=== PATIENT | female | born 1935 | race African-American/Black ===

== ENCOUNTER 2016-11-01 23:04 | Inpatient (IN) | payer OTHER ==
--- NOTE | ~2016-11-01 | US77 ---
[facility] A Service of [facility] & [facility] RADIOLOGY TEXT RESULTS PATIENT: CASH AVINA LOCATION: [facility] 577-01 : 36 UNIT #: [id number] AGE: [address]: Марина Lester MD SEX: F ORDER DR: [id number] [facility] [address] [place], [place] [address] [id number] MR#: [id number] Acc #: [id number] NAME: CASH AVINA : 1935 SEX: F STUDY DATE/TIME: 11/02/2016 13:53 UNIT: [facility] ROOM: [facility] STUDY DESCRIPTION: US Kidney Bilateral Complete Attending Physician: Марина Lester M.D. Ordering Physician: Edel Whitmore M.D. Primary Care Physician: Er Doctor [facility] MEDICAL IMAGING REPORT This report is preliminary unless electronic signature is present EXAM Bilateral renal sonogram HISTORY Acute renal failure, creatinine 3.0, BUN 34 FINDINGS Real-time examination demonstrates increased echogenicity of both kidneys suggesting underlying medical renal disease. Cortical thickness appears normal. No hydronephrosis. No mass lesions identified. The right kidney measures 12.4 cm in length. Left kidney 11.5 cm in length. Bladder unremarkable. Incidentally noted is a 1 cm liver cyst. IMPRESSION Bilaterally echogenic kidneys may reflect underlying medical renal disease. No hydronephrosis or mass lesion identified. Dictated by... Nina Yu M.D. THIS IS AN ELECTRONICALLY VERIFIED REPORT Nina Yu M.D. at 11/03/2016 9:37 AM Lauren TD: 11/02/2016 20:43 JOB #: [id number] MEDICAL IMAGING REPORT Page 1 of 1 COPY
--- NOTE | ~2016-11-01 | HP ---
Unit #: [id number] #: [id number] Patient: CASH AVINA [id number] [address] [place], [place] [address] [id number] I MR#: [id number] NAME: CASH AVINA ROOM: 577 Age: 81 Sex: F Admission Date: 11/01/2016 : 1935 Attending Physician: Марина Lester M.D. HISTORY AND PHYSICAL CHIEF COMPLAINT Low blood sugar. HISTORY OF PRESENT ILLNESS This patient basically is an 81-year-old female with past medical history of stroke, hypertension, hypothyroidism, diabetes mellitus and left eye blindness, no surgical history. Presents with a complaint of low blood sugar, feeling weak. Was found to have elevated creatinine. I am seeing the patient at the bedside. Denies any headache, blurry vision, chest pain. PAST MEDICAL HISTORY As described above. SOCIAL HISTORY Nonsmoker. No alcohol or drug abuse. FAMILY HISTORY None, as per record. MEDICATIONS As per MAR. Has been reviewed. ALLERGIES Have been reviewed. PHYSICAL EXAMINATION VITAL SIGNS: Temperature is 98, pulse 70, respirations 12, blood pressure 130/70. NEUROLOGIC: Awake, alert and oriented. No neuro deficits. HEENT: PERRLA. EOMI. NECK: Supple. No JVD. CHEST: Bilateral air entry. Bilaterally mild rhonchi. GI: Nontender. Soft. Bowel sounds are positive. EXTREMITIES: Positive edema. SKIN: No rash or ulcers. LYMPHATIC: No adenopathy. DIAGNOSTIC STUDIES Labs and imaging have been reviewed. ASSESSMENT 1. Acute renal failure. 2. Diabetes mellitus. Unit #: [id number] #: [id number] Patient: CASH AVINA 3. Hypertension. 4. Morbid obesity. 5. Questionable UTI. PLAN Continue the patient on IV antibiotics, bronchodilator. GI and DVT prophylaxis. Hold Hydrochlorothiazide. Monitor blood sugar. Consult nephrology. The patient will be closely monitored. Please see orders for detailed plan. Dictated by Gustaov Joel/geraldine TD: 11/02/2016 12:45 JOB #: [id number] HISTORY AND PHYSICAL Page 1 of 1 X Марина Lester MD X HISTORY AND PHYSICAL
--- NOTE | ~2016-11-01 | DS ---
Unit #: [id number] #: [id number] Patient: CASH AVINA [id number] [address] [address] [id number] I MR#: [id number] NAME: CASH AVINA ROOM: 57 Age: 81 Sex: F Admission Date: 11/01/2016 : 1935 Discharge Date: Attending Physician: Марина Lester M.D. Primary Care Physician: [facility] DISCHARGE SUMMARY DISCHARGE DIAGNOSES 1. Acute kidney injury. 2. Urinary tract infection, status post treatment. 3. Hypertension. 4. Diabetes mellitus. CHIEF COMPLAINT/HISTORY OF PRESENT ILLNESS The patient presented with a complaint of renal insufficiency and was admitted. Patient is pretty adamant to go home and she does not want to stay. Her creatinine is 3.3. PHYSICAL EXAMINATION VITAL SIGNS: Temperature 98, pulse 87, respirations 12, blood pressure 130/70. NEUROLOGIC: Awake, alert, oriented. No neuro deficit. HEENT: PERRLA plus 1. NECK: Supple. No JVD. CHEST: Bilateral air entry. Bilateral mild rhonchi. GASTROINTESTINAL: Nontender, soft. Bowel sounds positive. EXTREMITIES: No edema. SKIN: No rashes. No ulcers. LYMPHATIC: No lymphadenopathy. DISCHARGE MEDICATIONS As per med reconciliation. Please see orders for detailed plan. FOLLOWUP Patient will follow with nephrology. Follow with primary care physician. Dictated by... Gustavo Joel/joey TD: 11/03/2016 15:26 JOB #: [id number] Unit #: [id number] #: [id number] Patient: CASH AVINA DISCHARGE SUMMARY Page 1 of 1 X Марина Lester MD X DISCHARGE SUMMARY
--- NOTE | ~2016-11-01 | CO ---
Unit #: [id number] #: [id number] Patient: CASH GONZALEZ [id number] [address] [address] [id number] I MR#: [id number] NAME: CASH GONZALEZ ROOM: 577 Age: 81 Sex: F Admission Date: 11/01/2016 : 1935 Attending Physician: Марина Lester M.D. Consultation Date: 11/02/2016 CONSULTATION REPORT REASON FOR CONSULTATION Renal insufficiency. Thank you very much for asking us to see this patient in consultation. HISTORY OF PRESENT ILLNESS Ms. Cash Gonzalez is an 81-year-old female, who states she has never had any major problems with her kidneys that she knows of, although she has a history of diabetes mellitus times many many years on insulin as well as history of hypertension times a few years, who states she went from brand name antihypertensive medications to generic, although apparently the same medications, but she could not remember the brand name, who presented here after apparently sugars dropping low yesterday evening. Upon presentation, she was noted to have a BUN and creatinine of 32 and 3.4. Because of this, we were asked to see the patient. The patient states she takes occasional nonsteroidal, but not on a regular basis. She does have again a history of hypertension and diabetes. She denies any heart disease. She denies any kidney stones, frequent UTIs, any skin rashes, or any other major medicine changes. PAST MEDICAL HISTORY History of diabetes mellitus times many years, history of hypertension, history of TIA with left eye blindness, she states,/stroke. She denies any heart disease or lung disease. She denies any kidney disease, liver disease, any cancers. ALLERGIES No known drug allergies. SOCIAL HISTORY She states she used to smoke some, but she does not now. She denies any alcohol. She lives in a fpc home now. MEDICATIONS Apparently include insulin, Norvasc 10 mg a day, losartan/hydrochlorothiazide 100/12.5 a day, and Tenormin daily. REVIEW OF SYSTEMS She denies any severe headaches currently, visual problems except for the blindness in her left eye. She denies any cough or hemoptysis. No neck pain or neck stiffness. She denies any chest pain, chest heaviness, or palpitations. No shortness of breath. She denies any severe abdominal pain, nausea, vomiting, or diarrhea. She denies any urinary symptoms of starting or stopping burning. She denies any skin rashes. She states she Unit #: [id number] #: [id number] Patient: CASH GONZALEZ has had some increased swelling over the last several weeks or so only. She denies any other major issues. FAMILY HISTORY Negative for any kidney disease. PHYSICAL EXAMINATION GENERAL: She is alert and oriented. VITAL SIGNS: Temperature is 97.9, pulse 53 to 63, blood pressure 177 to 197 over 78 to 108. HEENT: Normocephalic and atraumatic. Pupils are equal, round, and reactive to light. Extraocular muscles are intact. Hearing appears to be normal. Mouth is clear. No erythema. No exudates. NECK: Supple. No JVD. CARDIAC: She has regular rate and rhythm without a rub. No S3 or S4. LUNGS: Clear bilaterally. No wheezes, rhonchi, or rales. ABDOMEN: Obese. Bowel sounds positive. Nontender. Soft. EXTREMITIES: She has some mild lower extremity swelling. Her pulses are intact in lower extremities. JOINTS: No joint pain or joint swelling. SKIN: No rashes. NEUROLOGIC: Appears to be intact motor and sensory grossly. Again, she has does have decreased vision in her left eye. Her neuro otherwise intact. : Deferred. DIAGNOSTIC STUDIES LABORATORY RESULTS: Again, BUN and creatinine are 32 and 3.4 yesterday, today it is 34 and 3.0 BUN and creatinine. Sodium is 141, potassium 3.6, chloride is 112, bicarb is 20, glucose 123, calcium is 8.3, albumin is 2.9. Troponin is less than 0.05. Hemoglobin is 10.3, white count 6600, platelets 268,000. Urine culture is pending. She has specific gravity of 1.019, 3+ protein, 5 to 10 rbc's, 5 to 10 wbc's, 1+ bacteria. ASSESSMENT AND PLAN 1. Renal insufficiency. Again I do not know if this is acute or chronic. She again denies any history of having any kidney problems, but I do not have any previous urines or any previous kidney functions. She has recently switched over to [facility]. We will try to get hold of some urine and blood work from there and from previous doctors if they have the information as well and try to review these. Certainly, she is adamant to say that she has never had any problems with her kidneys and certainly again this could be acute. She has 3+ protein, some hematuria, as well as renal insufficiency. I would like to go ahead and check a renal ultrasound. I would like to check multiple serology studies including an OFELIA, C3, C4, anti-GBM, ANCA. Check a random urine protein to creatinine ratio. Check serum protein immunofixation. Continue IV fluids depending on what all these shows and depending on what further workup and treatment, might even have to consider kidney biopsy if her renal function was normal a few months ago. 2. Hypertension. We will restart her Norvasc and would recommend to add Tenormin. Hold her losartan for now until we can see where her kidneys go. 3. Possible urinary tract infection. We will put her on Rocephin and await for urine cultures. 4. Diabetes mellitus. Dictated by... Unit #: [id number] #: [id number] Patient: CASH GONZALEZ M.D. WAD/irene TD: 11/03/2016 02:14 JOB #: [id number] CONSULTATION REPORT Page 1 of 1 X Zara Whitmore MD X CONSULTATION REPORT
--- NOTE | ~2016-11-01 | BMI ---
[facility] Nutrition Therapy DATE: 11/02/16 Patient: CASH AVINA Physician: MARYSOL Address: [address] Room/Bed: [address] [place] [address], Zip: [place] [address] Admit Date: 11/01/16 Date of : [birth year] Height: 5 2 Weight: 224 101.71 HIGH BMI NOTE: DX: 81 Y.O. FEMALE ADMITTED FOR HYPOGLYCEMIA ANTHROPOMETRICS: 5'2", WT: 224# (102 KG), BMI: 41.0 DIET: REGULAR INTERVENTION: 1. REGULAR DIET RECOMMENDATIONS: 1. RECOMMEND TO CHANGE CURRENT DIET ORDER TO CC+HH TO PROMOTE GRADUAL WEIGHT LOSS TOWARDS HEALTHY BMI (19.0-25.0) OR +/-10%IBW RD WILL F/U PER PROTOCOL Respectfully, ANYA HERRERA MS, RD, LD [facility] cc: client file
[2016-11-01 21:37] LABS: BASOPHIL# 0.1 X10e3 (0-0.3); DIFF IND NO; EOSINOPHIL# 0.1 X10e3 (0-0.7); EOSINOPHIL% 1.4 % (0.0-7.0); HEMATOCRIT 34.9 % (35.0-45.0); HEMOGLOBIN 11.4 gm/dL (12.0-16.0); LYMPHOCYTE# 1.3 X10e3 (1.0-3.5); LYMPHOCYTE% 18.2 % (17.0-45.0); MEAN CELL VOLUME 87.9 FL (83-96); MEAN CORPUSCULAR HEMOGLOBIN 28.8 PG (28-34); MEAN CORPUSCULAR HGB CONC 32.8 g/dL (30-36); MEAN PLATELET VOLUME 7.2 FL (6.5-11.5); MONOCYTE# 0.5 X10e3 (0-1.0); MONOCYTE% 6.6 % (3.0-12.0); NEUTROPHIL# 5.1 X10e3 (1.5-7.1); NEUTROPHIL% 72.8 % (40-75); PLATELET COUNT 301 X10e3 (140-420); RED BLOOD COUNT 3.97 X10e (3.90-5.30); RED CELL DISTRIBUTION WIDTH 16.1 % (11.0-15.5)
[2016-11-01 22:02] LABS: ALBUMIN SERUM 2.9 g/dL (3.5-5.0); BILIRUBIN,TOTAL 0.4 mg/dL (0.2-2.0); BUN/CREATININE RATIO 9.41; CREATININE SERUM 3.4 mg/dL (0.6-1.4); GLOM FILT RATE Estimated 12.1 mL/min (>60); POTASSIUM 4.7 mmol/L (3.5-5.1); PROTEIN TOTAL SERUM 7.6 g/dL (6.0-8.3)
[2016-11-01 22:03] LABS: BILIRUBIN, DIRECT 0.1 mg/dL (0.0-0.2); BILIRUBIN,INDIRECT 0.3 mg/dL (0.0-0.9)
[2016-11-01 22:54] LABS: POC - CKMB 5.1 ng/mL (0.0-7.9); POC - TROPONIN <0.05 ng/mL (<=0.05)
[2016-11-01 23:20] LABS: POC - CKMB 5.6 ng/mL (0.0-7.9); POC - TROPONIN <0.05 ng/mL (<=0.05)
[2016-11-01 23:31] LABS: URINE SOURCE CLEAN CATCH
[2016-11-01 23:35] LABS: URINE APPEARANCE CLEAR; URINE BILIRUBIN NEG (NEG); URINE BLOOD 2+ (NEG); URINE COLOR YELLOW; URINE GLUCOSE 250 MG/DL (NEG); URINE KETONE TRACE (NEG); URINE LEUKOCYTE ESTERASE NEG (NEG); URINE NITRATE NEG (NEG); URINE PROTEIN 3+ (NEG); URINE SPECIFIC GRAVITY 1.019 (1.003-1.035); URINE UROBILINOGEN 0.2 MG/DL (NEG)
[2016-11-01 23:37] LABS: CULTURE INDICATED? YES; URINE BACTERIA AUWI 1+ (NEGATIVE); URINE SQUAMOUS EPITHELIAL CELL FEW /[HPF]
[2016-11-02] MEDS ORDERED: NORVASC10 MG PO (00:14)
[2016-11-02] MEDS ORDERED: HUMULIN 70100 UNIT/1 (00:14)
[2016-11-02] MEDS ORDERED: LOSARTAN-HCTZ1 EAC2 (00:15)
[2016-11-02] MEDS ORDERED: TENORMIN50 MG PO (00:15)
[2016-11-02 03:37] LABS: BASOPHIL% 0.7 % (0-2.5); EOSINOPHIL# 0.1 X10e3 (0-0.7); EOSINOPHIL% 1.1 % (0.0-7.0); HEMATOCRIT 30.5 % (35.0-45.0); HEMOGLOBIN 10.3 gm/dL (12.0-16.0); LYMPHOCYTE# 1.1 X10e3 (1.0-3.5); LYMPHOCYTE% 16.6 % (17.0-45.0); MEAN CELL VOLUME 86.6 FL (83-96); MEAN CORPUSCULAR HEMOGLOBIN 29.2 PG (28-34); MEAN CORPUSCULAR HGB CONC 33.7 g/dL (30-36); MEAN PLATELET VOLUME 7.5 FL (6.5-11.5); MONOCYTE# 0.4 X10e3 (0-1.0); MONOCYTE% 6.4 % (3.0-12.0); NEUTROPHIL% 75.2 % (40-75); PLATELET COUNT 268 X10e3 (140-420); RED BLOOD COUNT 3.52 X10e (3.90-5.30); WHITE BLOOD COUNT 6.6 X10e3 (4.0-10.5)
[2016-11-02 03:38] LABS: DIFF IND NO
[2016-11-02 03:57] LABS: BUN/CREATININE RATIO 11.33; CALCIUM SERUM 8.3 mg/dL (8.4-10.2); GLOM FILT RATE Estimated 16.3 mL/min (>60); POTASSIUM 3.6 mmol/L (3.5-5.1)
[2016-11-02 12:43] LABS: CREATININE,RANDOM URINE 67 mg/dL
[2016-11-02 12:48] LABS: TOTAL PROTEIN,RANDOM URINE 877 mg/dl (<10)
[2016-11-03 05:29] LABS: HEMATOCRIT 30.9 % (35.0-45.0); HEMOGLOBIN 10.2 gm/dL (12.0-16.0); MEAN CELL VOLUME 86.9 FL (83-96); MEAN CORPUSCULAR HEMOGLOBIN 28.8 PG (28-34); MEAN CORPUSCULAR HGB CONC 33.1 g/dL (30-36); MEAN PLATELET VOLUME 7.3 FL (6.5-11.5); RED BLOOD COUNT 3.55 X10e (3.90-5.30); RED CELL DISTRIBUTION WIDTH 16.4 % (11.0-15.5); WHITE BLOOD COUNT 6.2 X10e3 (4.0-10.5)
[2016-11-03 05:43] LABS: PARTIAL THROMBOPLASTIN TIME 26.4 SECONDS (23.5-31.3); PROTHROMBIN TIME (PATIENT) 10.7 SECONDS (9.6-11.5)
[2016-11-03 06:14] LABS: ALBUMIN SERUM 2.1 g/dL (3.5-5.0); BILIRUBIN,TOTAL 0.4 mg/dL (0.2-2.0); BUN/CREATININE RATIO 9.39; CALCIUM SERUM 7.8 mg/dL (8.4-10.2); CREATININE SERUM 3.3 mg/dL (0.6-1.4); GLOM FILT RATE Estimated 14.5 mL/min (>60); MAGNESIUM 1.5 mg/dL (1.6-3.0); POTASSIUM 4.1 mmol/L (3.5-5.1); PROTEIN TOTAL SERUM 5.6 g/dL (6.0-8.3)
[2016-11-03] MEDS ORDERED: HYDRALAZINE HCL25 MG PO (16:06)
[2016-11-04 03:16] LABS: COMPLEMENT C3 136 mg/dL (90-180); COMPLEMENT C4 34 mg/dL (16-47)
[2016-11-08 10:28] LABS: ANA SCREEN Negative (Negative); HEP C AB (HEPPAN) Reactive (Nonreactive); MYELOPEROXIDASE AB (PNL) <1.0 AI (<1.0); PROTEINASE-3 AB (PNL) <1.0 AI (<1.0)
== END 2016-11-03 18:46 | disposition short-term general hospital (02) | DRG 683 ==
LOC: CED 23:04 → CEDOF 23:11 → C5C 11-02 07:58
PROVIDERS: Emergency Medicine; Internal Medicine Nephrology
DX: N17.9 Acute kidney failure, unspecified (principal); Z68.41 Body mass index [BMI] 40.0-44.9, adult; E11.649 Type 2 diabetes mellitus with hypoglycemia without coma; N39.0 Urinary tract infection, site not specified; I10 Essential (primary) hypertension; E03.9 Hypothyroidism, unspecified; H54.42 Blindness, left eye, normal vision right eye; E66.01 Morbid (severe) obesity due to excess calories
CPT/HCPCS: 36415; 76770; 80048; 80053; 80076; 81003; 82553; 82570; 82947; 83520; 83735; 84156; 84484; 85025; 85027; 85610; 85730; 86021; 86038; 86039; 86160; 86334; 86803; 87086; 87522; 89190; 94640; 94760; 96361; 96374; 99285; J0696; J1610; J1815; J3475